=== PATIENT | female | born 1950 | race Caucasian/White ===

== ENCOUNTER 2018-04-16 08:20 | Observation (INO) | payer MEDICARE ==
[2018-04-16] MEDS ORDERED: NS 0.9% 1000 ML* 1,000 ML IV ONE (08:38)
--- NOTE | 2018-04-16 08:52 | ED ---
Abdominal Pain/Female - HPI Summary HPI Summary: Patient is a 68-year-old female who presents emergency department for abdominal pain 2 days. Patient states she's been having intermittent right lower abdominal pain since yesterday. She states this morning pain was severe and she became diaphoretic and had an episode of vomiting. She said since pain has improved. She also notes she had a bit of left upper quadrant abdominal pain which she gets from esophageal spasms. She states she's prescribed nitroglycerin for spasms and did take one this morning which improved her upper abdominal pain. She otherwise denies chest pain, shortness of breath, diarrhea , urinary symptoms, fever, recent upper respiratory infections. Past medical history of hypothyroidism. Surgical history of section. Symptoms are moderate in severity. Movement makes symptoms worse. Rest makes symptoms better. Patient currently rates her pain has minimal and a 2 out of 10. - History of Current Complaint Chief Complaint: EDAbdPain Stated Complaint: ABD PAIN Time Seen by Provider: 04/16/18 08:30 Hx Obtained From: Patient Pain Intensity: 2 Allergies/Adverse Reactions: Allergies Allergy/AdvReac Type Severity Reaction Status Date / Time clindamycin Allergy GI Upset Verified 04/16/18 11:45 Penicillins Allergy Difficulty Verified 04/16/18 11:45 Breathing/Wheezing Home Medications: Home Medications Calcium Carbonate [Calcium] 600 mg PO BID 04/16/18 [History Confirmed 04/16/18] Levothyroxine TAB* [Synthroid TAB*] 50 mcg PO EVERY OTHER DAY 04/16/18 [History Confirmed 04/16/18] Levothyroxine TAB* [Synthroid TAB*] 75 mcg PO EVERY OTHER DAY 04/16/18 [History Confirmed 04/16/18] Multivitamins/Minerals TAB* [Theragran/minerals TAB*] 1 tab PO DAILY 04/16/18 [ History Confirmed 04/16/18] Nitroglycerin TAB 0.4 MG* 0.4 mg SL Q5M PRN 04/16/18 [History Confirmed 04/16/18 ] Red Yeast Rice [Red Yeast Rice] 600 mg PO BID 04/16/18 [History Confirmed ] PMH/Surg Hx/FS Hx/Imm Hx Previously Healthy: Yes Endocrine/Hematology History: Reports: Hx Thyroid Disease Denies: Hx Diabetes Cardiovascular History: Denies: Hx Hypertension, Hx Pacemaker/ICD GI History: Reports: Hx Gastroesophageal Reflux Disease History: Reports: Hx Renal Disease - EARLY STAGE NO MEDS, Other Problems/ Disorders - PT. STATES HAS PCP HAS SLIGHT KIDNEY DYSFUNCTION FOLLOWED BY PCP Musculoskeletal History: Reports: Hx Arthritis - ANTONIO, Hx Osteoporosis, Other Musculoskeletal History - FIBROMAYLSIA Sensory History: Reports: Hx Cataracts - BILAT, Hx Contacts or Glasses Denies: Hx Hearing Aid Opthamlomology History: Reports: Hx Cataracts - BILAT, Hx Contacts or Glasses Psychiatric History: Denies: Hx Panic Disorder - Cancer History Hx Chemotherapy: No Hx Radiation Therapy: No - Surgical History Surgery Procedure, Year, and Place: C SECTION 1977. GAGLION CYST REMOVED . TONSILLECTOMY . OOPHERECTOMY Hx Anesthesia Reactions: Yes - N/V Infectious Disease History: No Infectious Disease History: Denies: Traveled Outside the [place] in Last 30 Days - Social History Occupation: Retired Lives: With Family Alcohol Use: Occasionally Alcohol Amount: 2 WEEK Substance Use Type: Reports: None Smoking Status (MU): Never Smoked Tobacco Review of Systems Constitutional: Negative Negative: Fever, Chills Eyes: Negative ENT: Negative Cardiovascular: Negative Negative: Palpitations, Chest Pain Respiratory: Negative Negative: Shortness Of Breath, Cough Positive: Abdominal Pain, Vomiting. Negative: Diarrhea, Nausea Genitourinary: Negative Negative: dysuria, frequency, flank pain Neurological: Negative All Other Systems Reviewed And Are Negative: Yes Physical Exam Triage Information Reviewed: Yes Vital Signs On Initial Exam: Initial Vitals Temp Pulse Resp BP Pulse Ox 97.8 F 68 16 173/85 95 04/16/18 08:23 04/16/18 08:23 04/16/18 08:23 04/16/18 08:23 04/16/18 08:23 Vital Signs Reviewed: Yes Appearance: Positive: Well-Appearing - Patient resting comfortably in bed in no acute distress. Pleasant. Skin: Positive: Warm, Dry Head/Face: Positive: Normal Head/Face Inspection Eyes: Positive: Normal Neck: Positive: Supple Respiratory/Lung Sounds: Positive: Clear to Auscultation, Breath Sounds Present Cardiovascular: Positive: Normal, RRR Abdomen Description: Positive: Other: - Abdomen is soft throughout with marked tenderness to the right lower quadrant with guarding. No rigidity. No CVA tenderness bilaterally. Neurological: Positive: Normal, CN Intact II-III Psychiatric: Positive: Affect/Mood Appropriate Diagnostics - Vital Signs Vital Signs Temp Pulse Resp BP Pulse Ox 04/16/18 08:23 97.8 F 68 16 173/85 95 - Laboratory Result Diagrams: 04/16/18 08:52 04/16/18 08:52 Lab Statement: Any lab studies that have been ordered have been reviewed, and results considered in the medical decision making process. Abdominal Pain Fem Course/Dx - Course Course Of Treatment: Patient presenting with intermittent right lower quadrant abdominal pain. She is mildly tender on exam. She is afebrile with stable vital signs. She was started on IV fluids. We'll obtain basic labs and CT scan results EKG. She currently declines antiemetics or analgesics. Unremarkable other than mildly elevated CRP. Abdominal CT shows acute appendicitis without abscess or rupture, reading per radiology. General surgery was consulted and I spoke with Dr. Sharp who will plan on taking pt. to the OR. Results were discussed with pt. and family. Pain is minimal at this time. - Diagnoses Differential Diagnosis: Positive: Abdominal Aortic Aneurysm, ACS, Appendicitis, Bowel Obstruction, Constipation, Diverticulitis, Renal Colic, Urinary Tract Infection Provider Diagnoses: Appendicitis Discharge - Sign-Out/Discharge Documenting (check all that apply): Discharge/Admit/Transfer - Discharge Plan Condition: Good Disposition: ADMITTED TO [facility] Referrals: Barbra Del Rosario MD [Primary Care Provider] - - Billing Disposition and Condition Condition: GOOD Disposition: [facility] [place]
[2018-04-16 09:10] LABS: ABS Basophils 0 10^3/ul (0-0.2); ABS Eosinophils 0.1 10^3/ul (0-0.6); ABS Lymphocytes 1.4 10^3/ul (1.0-4.8); ABS Monocytes 0.5 10^3/ul (0-0.8); ABS Nucleated RBC 0 10^3/ul; Eosinophil % 0.9 % (0-6); Hematocrit 39 % (35-47); Hemoglobin 13.3 g/dl (12.0-16.0); Lymphocyte % 17.6 % (25-47); Mean Corpuscular HGB Conc 34 g/dl (31-36); Mean Corpuscular Hemoglobin 30 pg (27-31); Mean Corpuscular Volume 88 fL (80-97); Nucleated Red Blood Cells % 0.2; Platelet Count 218 10^3/ul (150-450); Red Blood Count 4.36 10^6/ul (4.0-5.4); Red Cell Distribution Width 13 % (10.5-15); White Blood Count 7.9 10^3/ul (3.5-10.8)
[2018-04-16 09:31] LABS: EGFR Non-African American 42.5 (>60)
[2018-04-16] MEDS ORDERED: Iodixanol* (CONTRAST) 320 MG/ML 100 ML SDV IV ONE (10:20)
[2018-04-16 11:03] LABS: Urine Appearance Clear; Urine Blood Negative (Negative); Urine Color Yellow; Urine Ketones Negative (Negative); Urine Protein Negative (Negative); Urine Specific Gravity 1.016 (1.010-1.030); Urine Urobilinogen Negative (Negative)
--- NOTE | 2018-04-16 11:27 | RAD ---
Indication: Right lower quadrant pain. Contrast: Administered 76.0 ml of VISAPAQUE 320 mg/ml CT of the abdomen and pelvis was performed after oral and IV contrast administration. Coronal and sagittal reconstructed images were obtained. The lung bases demonstrate no pleural fluid, nodules or masses. Heart is of normal size without evidence of pericardial effusion. Liver is normal in size. No focal lesions or intrahepatic ductal dilatation is noted. Gallbladder demonstrates no calcified gallstones. No pericholecystic fluid or wall thickening is identified. The pancreas demonstrates no mass or pancreatic ductal dilatation. The spleen is normal in size. No adrenal lesions are noted. The kidneys demonstrate symmetric nephrograms without hydronephrosis. Atherosclerotic aorta is noted. CT of the pelvis demonstrates no abnormally dilated loops of small bowel. The colon is filled with contrast. There is a blind ending tubular structure arising from the base of the cecum consistent with appendicitis. Periappendiceal infiltration of fat is noted. Diameter of the appendix is 10 mm which is abnormal. Urinary bladder is unremarkable. IMPRESSION: Findings consistent with acute appendicitis. No periappendiceal abscess is noted.
[2018-04-16] MEDS ORDERED: HYDROmorphone INJ* 2 MG/ML CARPUJECT SYRINGE IV PRN (12:37)
[2018-04-16] MEDS ORDERED: Ondansetron INJ* 2 MG/ML VIAL IV PRN (12:37)
[2018-04-16] MEDS ORDERED: Nitroglycerin TAB 0.4 MG* 0.4 MG TAB SL PRN (12:41)
[2018-04-16] MEDS ORDERED: NS 0.9% 1000 ML* 1,000 ML IV SCH (12:45)
[2018-04-16] MEDS ORDERED: metroNIDAZOLE IV 500 MG/100ML* 500 MG/100 ML BAG IVPB SCH (14:00)
[2018-04-16] MEDS ORDERED: metroNIDAZOLE IV 500 MG/100ML* 500 MG/100 ML BAG IVPB ONE (14:02)
--- NOTE | 2018-04-16 15:12 | HP ---
CC: Barbra Del Rosario MD. HISTORY AND PHYSICAL: DATE OF ADMISSION: 04/16/18. REASON FOR ADMISSION: Acute appendicitis. HISTORY OF PRESENT ILLNESS: The patient is a 68-year-old female with a recent diagnosis of esophageal spasm who presented to the [facility] Emergency Department today with abdominal pain. This began on 04/15/18 in the morning as a generalized diffuse abdominal pain with progressive severity and localization to the right lower quadrant over the course of the day. This was accompanied by anorexia. No nausea or vomiting. No fevers or chills. She has not had any diarrhea, constipation or urinary symptoms. The patient reports that pain is provoked by movement and alleviated by rest, though not completely. She has had no similar symptoms of pain in the past and there is no history of recent travel. PAST MEDICAL HISTORY: Significant for hypothyroidism and esophageal spasm. PAST SURGICAL HISTORY: She has had a section and a laparoscopic tubal ligation. MEDICATIONS: 1. She takes nitroglycerin sublingual 0.4 mg p.r.n. for esophageal spasm. 2. Synthroid 50 mcg alternating every other day with 75 mcg. 3. Calcium carbonate 600 mg p.o. twice daily. 4. Multivitamin daily. 5. Red yeast rice supplement daily. ALLERGIES: CLINDAMYCIN causes GI upset. PENICILLIN has caused hives and difficulty breathing in the past. FAMILY HISTORY: She has 2 siblings who had appendicitis in their youth. No family history of anesthesia reactions or blood clots. SOCIAL HISTORY: She is retired from the [employer] business. She does not smoke. She drinks less than 1 alcoholic beverage per week. She denies drug use. REVIEW OF SYSTEMS: A 14-point review of systems was completed and significant for the above mentioned positives and negatives; otherwise, the complete review was negative. PHYSICAL EXAMINATION GENERAL: She is a well-developed, well-nourished, 68-year-old female, in no acute distress. VITAL SIGNS: Height 4 feet 10 inches, weight 130 pounds, her temperature was 97.8 degrees Fahrenheit, pulse 63, respirations 16, blood pressure 150/75, and O2 sat 98% on room air. HEENT: Normocephalic and atraumatic. Sclerae are anicteric. Mucous membranes are moist. Her oropharynx is clear. Tongue is midline. NECK: There is no palpable lymphadenopathy. Her trachea is midline. PULMONARY: Her lungs are clear to auscultation bilaterally without wheezes, rales, or rhonchi. CARDIOTHORACIC: Her heart is regular. S1 and S2. No murmurs, rubs, or gallops appreciated. ABDOMEN: Her abdomen has well-healed lower midline scars, scar from previous laparoscopic surgery. Bowel sounds are diminished. The abdomen is soft with tenderness on the right side localizing to the right lower quadrant with positive Rovsing sign. No palpable hepato or splenomegaly. No hernias appreciated. EXTREMITIES: Warm without cyanosis, clubbing, or edema. No calf tenderness. DIAGNOSTIC STUDIES/LAB DATA: WBC 7.9, hemoglobin of 13.3, hematocrit of 218. Chemistry is notable for sodium 138, potassium 4.3, chloride of 105, carbon dioxide of 26, BUN of 22, and creatinine 1.25, glucose of 110. Her LFTs are normal as is her lipase, C-reactive protein elevated at 12.36. Urinalysis was negative. Radiographic Data: CT scan of abdomen and pelvis from 04/16/18 with oral and IV contrast, images were reviewed. Findings were significant for a blind ending tubular structure in the right lower quadrant consistent with appendicitis, diameter of 10 mm. IMPRESSION: This is a 68-year-old female with acute appendicitis, which is likely early based on her symptoms and radiographic findings. PLAN/RECOMMENDATION: I have discussed the findings with the patient and her daughter, who was present at the bedside. I recommended we proceed with laparoscopic appendectomy. The nature of this procedure, the indications, risks , benefits, alternatives as well as the option of treatment were discussed. The risks were explained including not limited to bleeding, infection, pain, scarring, blood clots, pneumonia, visceral injury, need for open procedure and the risk of general endotracheal anesthesia. All questions were answered. The patient stated understanding and she did agree to proceed. We did discuss expectations regarding hospital stay and recovery. The patient will be kept n.p.o. and be admitted as OBV. We will continue normal saline at 150 mL an hour. We will institute levofloxacin and metronidazole IV given her allergies. [id number]/[facility] #: [id number] [facility]
[2018-04-16] MEDS ORDERED: Bupivacaine 0.5% SDV PF* 30ML VIAL ONE (18:16)
[2018-04-16] MEDS ORDERED: Midazolam* 1 MG/ML 2 ML VIAL (2 MG) ONE (18:18)
[2018-04-16] MEDS ORDERED: fentaNYL* 50 MCG/ML 2 ML VIAL (100 MCG VIAL) ONE (18:18)
[2018-04-16] MEDS ORDERED: Bupivacaine 0.25% SDV* 30 ML ONE (18:19)
[2018-04-16] MEDS ORDERED: Lidocaine 2% PF * 5 ML VIAL ONE (18:19)
[2018-04-16] MEDS ORDERED: EPHEDrine (Pressors)* 50 MG/ML VIAL ONE (18:50)
[2018-04-16] MEDS ORDERED: Famotidine IV* 10 MG/ML 2 ML (20 mg) ONE (18:55)
[2018-04-16] MEDS ORDERED: Dexamethasone IV* 4 MG/ML 1 ML (4 MG) ONE (18:55)
[2018-04-16] MEDS ORDERED: Propofol* 10 MG/ML 20 ML BTL IV PUSH ONE (18:55)
[2018-04-16] MEDS ORDERED: Mivacurium Chloride* 20 MG/10 ML VIAL IV ONE (18:55)
[2018-04-16] MEDS ORDERED: Acetaminophen TAB* 325 MG PO PRN (19:01)
[2018-04-16] MEDS ORDERED: HYDROcodone/ACETAMIN 5-325 MG* 1 TAB PO PRN ×2 (19:01→19:40)
[2018-04-16] MEDS ORDERED: Ondansetron ODT TAB* 4 MG PO PRN (19:01)
[2018-04-16] MEDS ORDERED: fentaNYL* 50 MCG/ML 2 ML VIAL (100 MCG VIAL) IV PRN ×2 (19:01)
[2018-04-16] MEDS ORDERED: DiMENhydriNATE IV* 50 MG/ML VIAL IV PUSH PRN (19:01)
[2018-04-16] MEDS ORDERED: Scopolamine 1.5 mg* PATCH TRANSDERM PRN (19:01)
[2018-04-16] MEDS ORDERED: Naloxone* 0.4 MG/ML 1 ML VIAL IV PRN (19:01)
[2018-04-16] MEDS ORDERED: PROCHLORPERAZINE INJ 5 MG/ML 2 ML VIAL IV PRN (19:01)
[2018-04-16] MEDS ORDERED: Ibuprofen TAB* 400 MG PO PRN (19:41)
--- NOTE | 2018-04-16 19:45 | BRIEFOPN ---
Brief Operative Note - Surgery Procedures: PREOP/POSTOP DX: ACUTE APPENDICITIS PROC: LAP APPENDECTOMY SURG: MECENAS ASSIST: NONE ANES: TAMMIE/LEO EBL: MIN SPEC: APPENDIX DRAIN/COMPL: NONE COND: STABLE; EXTUBATED TO RR.
[2018-04-16 21:29] VITALS: BP 167/87
--- NOTE | 2018-04-17 19:50 | OP ---
DATE OF OPERATION: 04/16/18 - ROOM #342 DATE OF : 48 SURGEON: Austin Sharp MD SUPERVISOR INTERNATIONAL RESERVATIONS: None. ANESTHESIOLOGIST: Dr. Muhammad. ANESTHESIA: General endotracheal. PRE-OP DIAGNOSIS: Acute appendicitis. POST-OP DIAGNOSIS: Acute appendicitis. OPERATIVE PROCEDURE: Laparoscopic appendectomy. ESTIMATED BLOOD LOSS: Minimal. IV FLUIDS: 1 L of crystalloid. SPECIMEN: Appendix. DRAINS: None. COMPLICATIONS: None. COUNTS: Instrument, needle, and sponge count is correct. DESCRIPTION OF PROCEDURE: The patient was brought to the operating room and placed on the table supine. Sequential compression devices were placed on both lower extremities and general anesthesia was administered. She was prepped and draped in the usual sterile fashion. Time-out was performed. She had received appropriate intravenous antibiotics. Local anesthetic was infiltrated into the skin and soft tissue prior to making each incision. Entry to the abdomen is through a transumbilical incision using a 12 mm trocar. This was placed using an open technique. After placing the trocar, carbon dioxide was insufflated to a pressure of 15 mmHg. Under direct visualization, a 5-mm trocar was placed in the supraumbilical midline and in the left lower quadrant. Appendix was identified in the right lower quadrant with suppurative changes. No evidence of gangrene or perforation. The appendix was elevated and a window created in the mesentery of the appendix at the base. The appendix was divided using the EndoGIA stapler with galarza cartridge at the base. The mesentry of the appendix was divided with EndoGIA stapler with a green cartridge. The appendix was placed into a retrieval bag and retrieved through the umbilical site. Hemostasis was assured. Lavage of the pelvis and right lower quadrant was performed until clear. Carbon dioxide was released and ports were removed under direct visualization. Umbilicus was closed with 0 Vicryl in an interrupted fashion to approximate the fascia. Skin incisions were closed with 4-0 Monocryl in subcuticular fashion. Then, DermaFlex was applied. The patient tolerated the procedure well, was then extubated and transferred to the recovery room in stable condition. [id number]/[facility] #: [id number] MTDD
[2018-04-19] MEDS ORDERED: Scopolamine PATCH Remove* 1 NOTE MISC PATCH OFF ONE (19:04)
== END 2018-04-16 21:00 | disposition home or self-care (01) ==
LOC: ED 08:20 → SSU 12:37
PROVIDERS: ADMIT Surgery; ATTEND Surgery
PROC: 0DTJ4ZZ Resection of Appendix, Percutaneous Endoscopic Approach (ICD-10-PCS; principal; 2018-04-16 16:00)
DX: K35.80 Unspecified acute appendicitis (principal); E03.9 Hypothyroidism, unspecified; K22.4 Dyskinesia of esophagus; Z79.899 Other long term (current) drug therapy
CPT/HCPCS: 36415; 74177; 80053; 81003; 83605; 83690; 84484; 85025; 86140; 88304; 93005; 99283; C1776; G0378; J1100; J2250; J2704; J3010; J3490; Q9967